=== PATIENT | male | born 1970 | race Caucasian/White ===

== ENCOUNTER 2022-11-05 08:44 | Outpatient (CLI) | payer OTHER, SELFPAY ==
[2022-11-05 14:24] LABS: Albumin* 4.5 g/dL (3.3-5.0); Chloride* 104 mmol/L (96-114)
[2022-11-05 14:25] LABS: Potassium* 4.2 mmol/L (3.6-5.1); Sodium* 136 mmol/L (135-149)
[2022-11-05 14:27] LABS: Alanine Aminotransferase* 24 U/L (4-50); Alkaline Phosphatase* 70 U/L (40-150); Aspartate Amino Transferase* 23 U/L (12-35); Bilirubin Total* 0.9 mg/dL (0.1-1.5); Blood Urea Nitrogen* 14 mg/dL (7-30); Carbon Dioxide* 27 mmol/L (20-32); Cholesterol* 214 mg/dL (90-199); Creatinine* 0.9 mg/dL (0.5-1.5); Estimated Glomerular Filt Rate 102 ml/min; Glucose* 112 mg/dL (60-115); Total Protein* 7.1 g/dL (6.0-8.3)
[2022-11-05 14:28] LABS: Calcium* 9.1 mg/dL (8.4-10.6); HDL Cholesterol* 24 mg/dL (>=40)
[2022-11-05 14:40] LABS: PSA Screen* 0.81 ng/mL (0.10-4.00)
[2022-11-05 14:44] LABS: LDL Cholesterol Calculated 67 mg/dL (<100); Triglycerides* 614 mg/dL (40-149)
== END 2022-11-05 08:45 | disposition home or self-care (01) ==
PROVIDERS: PCP Family Medicine; Visit Provider Physician Assistant Medical
DX: E78.5 Hyperlipidemia, unspecified (principal); Z12.5 Encounter for screening for malignant neoplasm of prostate; Z13.29 Encounter for screening for other suspected endocrine disorder
CPT/HCPCS: 80053; 80061; 84153; 84443

== ENCOUNTER 2023-02-07 08:30 | Outpatient (CLI) | payer OTHER, SELFPAY | END 2023-02-07 08:31 | disposition home or self-care (01) | LOC: NFLDREF 13:12 | PROVIDERS: PCP Physician Assistant Medical; Referring Provider Physician Assistant Medical; Visit Provider Physician Assistant Medical | DX: E78.1 Pure hyperglyceridemia (principal); E78.2 Mixed hyperlipidemia | CPT/HCPCS: 80061; 84450; 84460 ==

== ENCOUNTER 2024-02-10 09:45 | Outpatient (CLI) | payer OTHER, SELFPAY | END 2024-02-10 09:46 | disposition home or self-care (01) | LOC: NFLDREF 02-14 07:11 | PROVIDERS: PCP Physician Assistant Medical; Referring Provider Physician Assistant Medical; Visit Provider Physician Assistant Medical | DX: N40.0 Benign prostatic hyperplasia without lower urinary tract symptoms; R53.83 Other fatigue; E78.1 Pure hyperglyceridemia; Z12.5 Encounter for screening for malignant neoplasm of prostate | CPT/HCPCS: 80053; 80061; 82306; 82607; 82728; 84443; G0103 ==

== ENCOUNTER 2025-02-28 08:18 | Outpatient (CLI) | payer OTHER, SELFPAY | END 2025-02-28 08:19 | disposition home or self-care (01) | LOC: NFLDREF 18:57 | PROVIDERS: PCP Physician Assistant Medical; Referring Provider Physician Assistant Medical; Visit Provider Physician Assistant Medical | DX: E78.2 Mixed hyperlipidemia (principal); R53.83 Other fatigue; N40.0 Benign prostatic hyperplasia without lower urinary tract symptoms | CPT/HCPCS: 80053; 80061; 84443; G0103 ==

== ENCOUNTER 2025-03-22 08:44 | Outpatient (CLI) | payer OTHER, SELFPAY ==
--- NOTE | 2025-03-22 10:11 | P.ANES_ITS ---
Anesthesia Charges Start Date/Time Anesthesia Start Date: 03/22/25 Anesthesia Start Time: 09:40 Stop Date/Time Anesthesia Stop Date: 03/22/25 Anesthesia Stop Time: 10:10 Coding CPT Codes CPT Codes: ANES LWR INTST NDSC NOS - [id number] ([id number]) P3 - PATIENT W/SEVERE SYS DISEASE, QK - PACKAGE CENTER SUPERVISOR 2-4 CNCRNT ANES PROC, QX - RETAIL SPECIALIST SVC W/ MD MED DIRECTION
--- NOTE | 2025-03-22 10:11 | W.ANESCHARGE ---
Anesthesia Charges Start Date/Time Anesthesia Start Date: 03/22/25 Anesthesia Start Time: 09:40 Stop Date/Time Anesthesia Stop Date: 03/22/25 Anesthesia Stop Time: 10:10 Coding CPT Codes CPT Codes: ANES LWR INTST NDSC NOS - [id number] ([id number]) P3 - PATIENT W/SEVERE SYS DISEASE, QK - PEARL DIVER 2-4 CNCRNT ANES PROC, QX - COIL REPAIR TECHNICIAN SVC W/ MD MED DIRECTION
--- NOTE | 2025-03-22 10:50 | P.ANES_ITS ---
Anesthesia Charges Start Date/Time Anesthesia Start Date: 03/22/25 Anesthesia Start Time: 09:40 Stop Date/Time Anesthesia Stop Date: 03/22/25 Anesthesia Stop Time: 10:10 Coding CPT Codes CPT Codes: ANES LWR INTST NDSC NOS - [id number] ([id number]) QK - BREWERY TECHNICIAN 2-4 CNCRNT ANES PROC, QX - GLUER AND WEDGER SVC W/ MED DIRECTION, P3 - PATIENT W/SEVERE SYS DISEASE
--- NOTE | 2025-03-22 10:50 | W.ANESCHARGE ---
Anesthesia Charges Start Date/Time Anesthesia Start Date: 03/22/25 Anesthesia Start Time: 09:40 Stop Date/Time Anesthesia Stop Date: 03/22/25 Anesthesia Stop Time: 10:10 Coding CPT Codes CPT Codes: ANES LWR INTST NDSC NOS - [id number] ([id number]) QK - SOFTWARE DEVELOPER MID LEVEL 2-4 CNCRNT ANES PROC, QX - PROJECT DRILLING ENGINEER SVC W/ MED DIRECTION, P3 - PATIENT W/SEVERE SYS DISEASE
== END 2025-03-22 08:45 | disposition home or self-care (01) ==
LOC: OP CLINIC 08:45
PROVIDERS: PCP Physician Assistant Medical; Visit Provider Internal Medicine
DX: Z12.11 Encounter for screening for malignant neoplasm of colon (principal); D12.5 Benign neoplasm of sigmoid colon; K57.30 Diverticulosis of large intestine without perforation or abscess without bleeding; Z86.0100 Personal history of colon polyps, unspecified
CPT/HCPCS: 00811; 00812; 45380; 88305; J2704